=== PATIENT | female | born 1995 | race Two or more races ===

== ENCOUNTER 2017-03-10 20:15 | Emergency (ER) | payer MEDICAID ==
[~2017-03-10] VITALS: Ht 160 cm; Wt 61.2 kg
[2017-03-10 21:15] LABS: Urine Bilirubin Negative (Negative); Urine Color Yellow (Yellow); Urine Glucose Normal (Normal); Urine Ketone Negative (Negative); Urine Mucus FEW (None Seen); Urine Nitrite Negative (Negative); Urine RBC 65 /hpf (0 - 4); Urine Squamous Epithelial Cell FEW /hpf (<5); Urine Urobilinogen Normal (Negative); Urine WBC Clumps PRESENT /hpf (None Seen); Urine pH 5.5 (5.0-8.0)
[2017-03-10 21:23] LABS: Urine Blood 2+ /uL (Negative)
[2017-03-10 21:27] LABS: Basophils # (auto) 0 uL; Basophils % (auto) 0.1 % (0.0-2.0); Eosinophils # (auto) 0 uL; Eosinophils % (auto) 0.3 % (0.0-7.0); Hemoglobin 13.7 g/dL (12.2-16.2); Lymphocytes # (auto) 1.6 uL; Mean Corpuscular Hemoglobin 30.5 pg (28.0-32.0); Mean Corpuscular Hgb Conc. 33.4 g/dL (32.0-36.0); Mean Corpuscular Volume 91.5 fL (80.0-100.0); Mean Platelet Volume 9.1 fL (7.4-10.4); Monocytes # (auto) 0.6 uL; Neutrophils # (auto) 9.1 uL; Neutrophils % (auto) 80.6 % (37.0-80.0); Platelet Count (auto) 288 10^3/uL (140-450); Red Cell Distribution Width 13.4 % (11.6-16.0); White Blood Cell 11.2 10^3/uL (4.4-10.8)
[2017-03-10 21:45] LABS: Albumin 4.4 g/dL (3.4-5.0); BUN/Creatinine Ratio 16.5; Calcium 9.1 mg/dL (8.5-10.1); Potassium 4.3 mmol/L (3.5-5.1)
[2017-03-10 21:48] LABS: Bilirubin, Total 0.5 mg/dL (0.2-1.0); Total Protein 8.5 g/dL (6.4-8.2)
[2017-03-10 21:54] LABS: INR 0.95 (0.9-1.15); Partial Thromboplastin Time 30.5 sec (22.64-33.71); Prothrombin Time 10.3 sec (9.37-12.3)
[2017-03-11] MEDS ORDERED: SODIUM CHLORIDE 0.9% 1,000 ML IV ONE (04:00)
[2017-03-11] MEDS ORDERED: KETOROLAC TROMETH 30 MG/ML 1ML VIAL IV ONE (04:00)
[2017-03-11] MEDS ORDERED: IOHEXOL 300 MG/ML 100ML BOTTLE IJ ONE (05:27)
[2017-03-11 06:27] VITALS: BP 89/54
[2017-03-11] MEDS ORDERED: LORazepam 2MG/ML-1ML VIAL IV ONE (07:15)
== END 2017-03-11 07:43 | disposition home or self-care (01) ==
LOC: ER 20:15
DX: N39.0 Urinary tract infection, site not specified (principal)
CPT/HCPCS: 36415; 74177; 76705; 80053; 81001; 81025; 82150; 83690; 84702; 85025; 85610; 85730; 94761; 96361; 96374; 99285; J1885; J7030; Q9967

== ENCOUNTER 2017-11-17 21:19 | Emergency (ER) | payer SELFPAY ==
[~2017-11-17] VITALS: Ht 160 cm; Wt 58.1 kg
[2017-11-18 00:27] VITALS: BP 118/60
== END 2017-11-18 01:11 | disposition home or self-care (01) ==
LOC: ER 21:19
DX: L03.116 Cellulitis of left lower limb (principal); W57.XXXA Bitten or stung by nonvenomous insect and other nonvenomous arthropods, initial encounter; Y93.89 Activity, other specified; Y99.8 Other external cause status; Y92.89 Other specified places as the place of occurrence of the external cause

== ENCOUNTER 2017-11-19 15:25 | Emergency (ER) | payer SELFPAY ==
[~2017-11-19] VITALS: Ht 160 cm; Wt 58.1 kg
[2017-11-19 16:09] VITALS: BP 108/73
[2017-11-19] MEDS ORDERED: cefTRIAXone SOD 1,000 MG VL IM ONE (18:15)
== END 2017-11-19 18:42 | disposition home or self-care (01) ==
LOC: ER 15:42
DX: L02.416 Cutaneous abscess of left lower limb (principal)
CPT/HCPCS: 10060; 96372; 99283; J0696

== ENCOUNTER 2019-12-26 09:15 | Observation (INO) | payer MEDICAID ==
[2019-12-26] MEDS ORDERED: LACTATED RINGER'S 1,000 ML IV ONE (11:02)
[2019-12-26] MEDS: TERBUTALINE SULFATE 1 MG/ML 1ML VIAL SC SCH ×2 (12:04→12:59)
== END 2019-12-26 14:20 | disposition home or self-care (01) | DRG 563 ==
LOC: LDRP 09:15
PROVIDERS: ADMIT Specialist; ATTEND Specialist
DX: O60.03 Preterm labor without delivery, third trimester (principal); Z3A.32 32 weeks gestation of pregnancy
CPT/HCPCS: 59025; 81002; 96372; G0378; J3105

== ENCOUNTER 2020-01-02 08:40 | Observation (INO) | payer MEDICAID ==
[2020-01-02] MEDS ORDERED: TERBUTALINE SULFATE 1 MG/ML 1ML VIAL SC SCH (10:30)
[2020-01-02] MEDS ORDERED: LACTATED RINGER'S 1,000 ML IV ONE (10:30)
[2020-01-02] MEDS ORDERED: PREN-129 OR (11:16)
== END 2020-01-02 12:10 | disposition home or self-care (01) | DRG 563 ==
LOC: LDRP 08:40
PROVIDERS: ADMIT Obstetrics & Gynecology; ATTEND Obstetrics & Gynecology
DX: O60.03 Preterm labor without delivery, third trimester (principal); O40.3XX0 Polyhydramnios, third trimester, not applicable or unspecified; Z3A.33 33 weeks gestation of pregnancy
CPT/HCPCS: 59025; 76818; 81002; 96372; G0378; J3105; 96365; 96366

== ENCOUNTER 2020-01-05 15:45 | Observation (INO) | payer MEDICAID ==
[~2020-01-05] VITALS: Ht 160 cm; Wt 61.2 kg
[~2020-01-05 15:45] MED LIST: PREN-129 OR
[2020-01-05] MEDS ORDERED: NIFEdipine 10 MG CAP PO ONE (17:30)
== END 2020-01-05 17:45 | disposition home or self-care (01) | DRG 566 ==
LOC: LDRP 15:45
PROVIDERS: ADMIT Obstetrics & Gynecology; ATTEND Obstetrics & Gynecology
DX: O40.3XX0 Polyhydramnios, third trimester, not applicable or unspecified (principal); Z3A.34 34 weeks gestation of pregnancy
CPT/HCPCS: 59025; 76818; 81002; G0378

== ENCOUNTER 2020-01-08 15:55 | Observation (INO) | payer MEDICAID ==
[~2020-01-08] VITALS: Ht 160 cm; Wt 69.4 kg
[2020-01-08] MEDS ORDERED: NIF10C PO (16:22)
[2020-01-08] MEDS ORDERED: LACTATED RINGER'S 1,000 ML IV ONE (17:00)
== END 2020-01-08 19:20 | disposition home or self-care (01) | DRG 566 ==
LOC: LDRP 15:55
PROVIDERS: ADMIT Specialist; ATTEND Specialist
DX: O40.3XX0 Polyhydramnios, third trimester, not applicable or unspecified (principal); Z3A.34 34 weeks gestation of pregnancy
CPT/HCPCS: 59025; 76818; 81002; G0378; 96361; 96366

== ENCOUNTER 2020-01-11 16:15 | Observation (INO) | payer MEDICAID ==
[~2020-01-11 16:15] MED LIST changes: +NIF10C PO
== END 2020-01-11 17:10 | disposition home or self-care (01) | DRG 566 ==
LOC: LDRP 16:15
PROVIDERS: ADMIT Obstetrics & Gynecology; ATTEND Obstetrics & Gynecology
DX: O40.3XX0 Polyhydramnios, third trimester, not applicable or unspecified (principal); Z3A.34 34 weeks gestation of pregnancy
CPT/HCPCS: 59025; 76818; 81002; G0378

== ENCOUNTER 2020-01-15 16:01 | Observation (INO) | payer MEDICAID | END 2020-01-15 17:15 | disposition home or self-care (01) | DRG 566 | LOC: LDRP 16:01 | PROVIDERS: ADMIT Specialist; ATTEND Specialist | DX: O40.3XX0 Polyhydramnios, third trimester, not applicable or unspecified (principal); Z3A.35 35 weeks gestation of pregnancy | CPT/HCPCS: 59025; 76818; 81002; G0378 ==

== ENCOUNTER 2020-01-18 16:12 | Observation (INO) | payer MEDICAID | END 2020-01-18 17:40 | disposition home or self-care (01) | DRG 566 | LOC: LDRP 16:12 | PROVIDERS: ADMIT Obstetrics & Gynecology; ATTEND Obstetrics & Gynecology | DX: O40.3XX0 Polyhydramnios, third trimester, not applicable or unspecified (principal); Z3A.35 35 weeks gestation of pregnancy | CPT/HCPCS: 59025; 76818; 81002; G0378 ==

== ENCOUNTER 2020-01-22 16:00 | Observation (INO) | payer MEDICAID | END 2020-01-22 17:50 | disposition home or self-care (01) | DRG 566 | LOC: LDRP 16:00 | PROVIDERS: ADMIT Obstetrics & Gynecology; ATTEND Obstetrics & Gynecology | DX: O40.3XX0 Polyhydramnios, third trimester, not applicable or unspecified (principal); Z3A.36 36 weeks gestation of pregnancy | CPT/HCPCS: 59025; 76818; 81002; G0378 ==

== ENCOUNTER 2020-01-25 16:08 | Observation (INO) | payer MEDICAID | END 2020-01-25 17:40 | disposition home or self-care (01) | DRG 566 | LOC: LDRP 16:08 | PROVIDERS: ADMIT Specialist; ATTEND Specialist | DX: O40.3XX0 Polyhydramnios, third trimester, not applicable or unspecified (principal); Z3A.36 36 weeks gestation of pregnancy | CPT/HCPCS: 59025; 76818; 81002; G0378 ==

== ENCOUNTER 2020-01-29 16:10 | Observation (INO) | payer MEDICAID | END 2020-01-29 17:42 | disposition home or self-care (01) | DRG 566 | LOC: LDRP 16:10 | PROVIDERS: ADMIT Specialist; ATTEND Specialist | DX: O40.3XX0 Polyhydramnios, third trimester, not applicable or unspecified (principal); Z3A.37 37 weeks gestation of pregnancy | CPT/HCPCS: 59025; 76818; 81002; G0378 ==

== ENCOUNTER 2020-02-01 15:59 | Observation (INO) | payer MEDICAID | END 2020-02-01 16:44 | disposition home or self-care (01) | DRG 566 | LOC: LDRP 15:59 | PROVIDERS: ADMIT Obstetrics & Gynecology; ATTEND Obstetrics & Gynecology | DX: O40.3XX0 Polyhydramnios, third trimester, not applicable or unspecified (principal); Z3A.37 37 weeks gestation of pregnancy | CPT/HCPCS: 59025; 76818; 81002; G0378 ==

== ENCOUNTER 2020-02-05 16:24 | Observation (INO) | payer MEDICAID | END 2020-02-05 16:55 | disposition home or self-care (01) | DRG 566 | LOC: LDRP 16:24 | PROVIDERS: ADMIT Obstetrics & Gynecology; ATTEND Obstetrics & Gynecology | DX: O40.3XX0 Polyhydramnios, third trimester, not applicable or unspecified (principal); Z3A.38 38 weeks gestation of pregnancy | CPT/HCPCS: 59025; 76818; 81002; G0378 ==

== ENCOUNTER 2020-02-08 16:04 | Observation (INO) | payer MEDICAID | END 2020-02-08 17:05 | disposition home or self-care (01) | DRG 566 | LOC: LDRP 16:04 | PROVIDERS: ADMIT Specialist; ATTEND Specialist | DX: O40.3XX0 Polyhydramnios, third trimester, not applicable or unspecified (principal); Z3A.38 38 weeks gestation of pregnancy | CPT/HCPCS: 59025; 76818; 81002; G0378 ==

== ENCOUNTER 2020-02-12 16:13 | Observation (INO) | payer MEDICAID ==
[~2020-02-12 16:13] MED LIST changes: -NIF10C PO
== END 2020-02-12 17:10 | disposition home or self-care (01) | DRG 566 ==
LOC: LDRP 16:13
PROVIDERS: ADMIT Specialist; ATTEND Specialist
DX: O40.3XX0 Polyhydramnios, third trimester, not applicable or unspecified (principal); Z3A.39 39 weeks gestation of pregnancy
CPT/HCPCS: 59025; 76818; 81002; G0378

== ENCOUNTER 2020-02-15 16:01 | Observation (INO) | payer MEDICAID ==
[~2020-02-15] VITALS: Ht 160 cm; Wt 72.1 kg
== END 2020-02-15 17:30 | disposition home or self-care (01) | DRG 566 ==
LOC: LDRP 16:01
PROVIDERS: ADMIT Obstetrics & Gynecology; ATTEND Obstetrics & Gynecology
DX: O40.3XX0 Polyhydramnios, third trimester, not applicable or unspecified (principal); Z3A.39 39 weeks gestation of pregnancy
CPT/HCPCS: 59025; 76818; 81002; G0378

== ENCOUNTER 2020-02-17 11:55 | Observation (INO) | payer MEDICAID | END 2020-02-17 13:50 | disposition home or self-care (01) | DRG 566 | LOC: LDRP 11:55 | PROVIDERS: ADMIT Specialist; ATTEND Specialist | DX: O42.92 Full-term premature rupture of membranes, unspecified as to length of time between rupture and onset of labor (principal); Z3A.40 40 weeks gestation of pregnancy | CPT/HCPCS: 76818; G0378; 59025; 81002 ==

== ENCOUNTER 2020-02-18 12:35 | Inpatient (IN) | payer MEDICAID ==
[~2020-02-18] VITALS: Ht 33 cm; Wt 0.5 kg
[2020-02-18] MEDS ORDERED: LACTATED RINGER'S 1,000 ML IV SCH (16:21)
[2020-02-18] MEDS ORDERED: NALBUPHINE HCL 10 MG/1ml INJECTION IV PRN (16:30)
[2020-02-18] MEDS ORDERED: PHISODERM TOP SOLN 240ML BTL TOP PRN (16:30)
[2020-02-18] MEDS ORDERED: WITCH HAZEL-GLYCERIN PAD TOP PRN (16:30)
[2020-02-18] MEDS ORDERED: DERMOPLAST 60ML BOTTLE TOP PRN (16:30)
[2020-02-18] MEDS ORDERED: LIDOCAINE 2%HCL (LOCAL ANESTH.) INJ 20ML MDV ID ONE (16:30)
[2020-02-18 17:19] LABS: Basophils # (auto) 0.1 10 ^3/uL (0-0.2); Basophils % (auto) 0.6 % (0.0-2.0); Eosinophils # (auto) 0 10 ^3/uL (0-0.8); Hematocrit 40.5 % (36.0-46.0); Hemoglobin 13.4 g/dL (12.2-16.2); Lymphocytes # (auto) 0.7 10 ^3/uL (0.4-5.4); Lymphocytes % (auto) 5.2 % (10.0-50.0); Mean Corpuscular Hemoglobin 31.6 pg (28.0-32.0); Mean Corpuscular Hgb Conc. 33.2 g/dL (32.0-36.0); Mean Corpuscular Volume 95.2 fL (80.0-100.0); Monocytes # (auto) 0.6 10 ^3/uL (0-1.3); Monocytes % (auto) 4.4 % (0.0-12.0); Neutrophils # (auto) 11.9 10 ^3/uL (1.6-8.6); Neutrophils % (auto) 89.8 % (37.0-80.0); Platelet Count (auto) 133 10^3/uL (140-450); Red Blood Cells 4.25 10^6/uL (4.0-5.20); Red Cell Distribution Width 14.1 % (11.8-14.3); White Blood Cell 13.2 10^3/uL (4.4-10.8)
[2020-02-18 17:34] LABS: INR 0.94 (0.9-1.15); Partial Thromboplastin Time 27.4 sec (23.64-32.05)
[2020-02-18] MEDS ORDERED: ACETAMINOPHEN 325 MG TAB PO ONE (18:15)
[2020-02-18 18:16] LABS: Albumin 3.1 g/dL (3.4-5.0); BUN/Creatinine Ratio 8.2; Calcium 9.1 mg/dL (8.5-10.1); Potassium 3.7 mmol/L (3.5-5.1)
[2020-02-18 18:19] LABS: Bilirubin, Total 0.6 mg/dL (0.2-1.0); Total Protein 7.7 g/dL (6.4-8.2)
[2020-02-18 18:23] LABS: Urine Bacteria FEW /hpf (None Seen); Urine Blood 2+ /uL (Negative); Urine Specific Gravity 1.009 (1.001-1.035); Urine WBC 14 /hpf (0 - 5)
[2020-02-18] MEDS ORDERED: ceFAZolin 1GM/50ML 50 ML IV SCH (18:30)
[2020-02-18] MEDS ORDERED: BUTORPHANOL TARTRATE 2 MG/1 ML VIAL IV PRN (19:45)
[2020-02-18] MEDS ORDERED: PROMETHAZINE HCL 25 MG/ML 1ML IM PRN (19:45)
[2020-02-18] MEDS ORDERED: LACT. RINGERS/OXYTOCIN 20UNITS 1,000 ML IV SCH (23:03)
[2020-02-18] MEDS ORDERED: LACT. RINGERS/OXYTOCIN 20UNITS 1,000 ML IV ONE (23:03)
--- NOTE | 2020-02-19 02:19 | NUR ---
Ambulation: Patient OOB with standby assistance by RN. Patient ambulated to bathroom with steady gait. Patient able to void without difficulty. [facility] teaching provided with returned demonstration by patient. Clean gown provided and bed linen changed. Patient ambulated back to bed with steady gait and no distress noted.
[2020-02-19] MEDS ORDERED: ACETAMINOPHEN 325 MG TAB PO PRN (02:30)
[2020-02-19] MEDS: IBUPROFEN 600 MG TAB PO PRN ×3 (02:37→20:28)
[2020-02-19 03:00] VITALS: BP 93/54
[2020-02-19 07:00] VITALS: BP 102/50
[2020-02-19 11:20] VITALS: BP 98/60
[2020-02-19 15:05] VITALS: BP 106/72
--- NOTE | 2020-02-19 16:38 | NUR ---
DR. JURADO TALKED TO PARENTS OF ON POC AND PARENTS UNDERSTAND TRANSFERRED TO A HIGHER LEVEL OF CARE.
[2020-02-19 19:00] VITALS: BP 109/60
--- NOTE | 2020-02-19 19:21 | NUR ---
CALLED MADE TO CNM IN REGRADES TO PATIENT WANTING TO LEAVE UNIT. ORDER RECEIVED TO DISCHARGE PATIENT. CNM WILL SPEAK WITH PATIENT.
--- NOTE | 2020-02-19 19:46 | NUR ---
IV removal IV DC'd with clean sterile technique, catheter fully intact. Pressure dressing applied to site. Patient tolerated well. NOTE:
[2020-02-19] MEDS ORDERED: TETANUS-DIPTH-ACEL PERTUSSIS 0.5ML SYR Tdap IM ONE (20:15)
[2020-02-19] MEDS ORDERED: INFLUENZA QUAD 2019-2020 0.5ml SYRG IM ONE (20:15)
--- NOTE | 2020-02-19 20:43 | NUR ---
Discharge: Discharge instructions given as ordered. Pt encouraged to follow up with [facility] as instructed. All questions and concerns addressed. Patient verbalized understanding. Medication reconciliation completed and copy given to patient. All required/requested vaccines given and copies of vaccinations given to patient. Patient encouraged to prepare to depart unit.
--- NOTE | 2020-02-19 20:51 | NUR ---
Discharge: Patient taken to vehicle via wheelchair with all personal belongings, accompanied by staff and family member. No distress noted at time of departure, no adverse changes in status since initial assessment.
[2020-02-19 20:54] VITALS: BP 109/74
--- NOTE | 2020-02-19 21:08 | NUR ---
CALL PLACED TO [facility] AND [facility]OB REGARDING COPIES OF PKU FORM AND VACCINE TO BE PICKED UP. [facility] WILL BE IN 02/21/20 TO GR[facility] THEM [facility]
[2020-02-20 05:06] LABS: RPR Non Reactive (Non Reactive)
== END 2020-02-19 20:50 | disposition home or self-care (01) | DRG 560 ==
LOC: LDRP 12:35 → OBSVTOIN 16:15 → LDRP 02-19 11:52
PROVIDERS: ADMIT Specialist; ATTEND Specialist
PROC: 10E0XZZ Delivery of Products of Conception, External Approach (ICD-10-PCS; principal; 2020-02-19)
DX: O62.0 Primary inadequate contractions (principal); O69.81X0 Labor and delivery complicated by cord around neck, without compression, not applicable or unspecified; Z37.0 Single live birth; Z3A.40 40 weeks gestation of pregnancy
CPT/HCPCS: 36415; 59025; 59409; 76815; 80053; 81001; 81002; 84112; 85025; 85610; 85730; 86592; 86850; 86900; 86901; 87086; 90715; 96372; G0378; J0690; J2590